=== PATIENT | male | born 1955 | race Caucasian/White ===

== ENCOUNTER 2017-04-22 05:17 | Inpatient (IN) | payer BC, OTHER ==
[2017-04-18 09:34] LABS: HEMATOCRIT 45.6 % (42.0-52.0); HEMOGLOBIN 15.5 gm/dL (14.0-18.0); MCH 32.3 pg (26.0-34.0); MCHC 34.1 g/dL (28.0-37.0); MCV 94.7 fL (80.0-100.0); RBC 4.82 mil/uL (4.50-6.00); RDW 14.5 % (10.5-14.5); WBC 5.5 thou/uL (4.0-11.0)
[2017-04-18 09:37] LABS: URINE BILIRUBIN NEGATIVE (Negative); URINE BLOOD NEGATIVE (Negative); URINE COLOR YELLOW; URINE GLUCOSE-RANDOM* NEGATIVE (Negative); URINE KETONES TRACE (Negative); URINE LEUKOCYTES-REFLEX NEGATIVE (Negative); URINE PROTEIN (DIPSTICK) NEGATIVE (Negative); URINE UROBILINOGEN 0.2 E.U./dl (0.2-1.0)
[2017-04-18 09:50] LABS: ALBUMIN 4.4 g/dL (3.4-5.0); CALCIUM 9.9 mg/dL (8.5-10.1); CREATININE 0.9 mg/dL (0.7-1.3); POTASSIUM 4.4 mmol/L (3.5-5.1)
[2017-04-18 09:51] LABS: INR 2.7; PROTIME 25.5 Seconds (9.3-11.4)
[2017-04-22] VITALS (12 sets, daily range): BP systolic 111–138; BP diastolic 65–89
[~2017-04-22] VITALS: Ht 193 cm; Wt 117.9 kg
--- NOTE | ~2017-04-22 | O ---
[facility] [place] [address] OPERATIVE REPORT Name: BENJAMIN ORTIZ Room #: 150-5 ADM IN M.R.#: [id number] Admission: 04/22/17 Attend Phys: Johann Polk MD Discharge: Date of : 51 Report #: [id number] THIS REPORT FOR: //name// CC: Jonathan Polk DATE OF SERVICE: 04/22/2017 PREOPERATIVE DIAGNOSIS: Left hip osteoarthritis. POSTOPERATIVE DIAGNOSIS: Left hip osteoarthritis. PROCEDURE: Left total hip arthroplasty. SURGEON: Johann Polk MD MUSIC THEORY PROFESSOR: Mahnaz Albert PA-C INDICATION FOR MUSIC THEORY PROFESSOR: Throughout the case extensive retraction and dislocation and reduction of the hip was required. This was afforded to me by my medication assistant. ANESTHESIA: General endotracheal. IMPLANTS: [employer] size 18 Synergy high offset press-fit stem, a size 60 R3 acetabular cup with one acetabular screw and a size 40 -3 Oxinium head. ESTIMATED BLOOD LOSS: 250 mL. COMPLICATIONS: None. SPECIMENS: None. CONDITION UPON LEAVING THE OPERATING ROOM: Stable. INDICATIONS FOR PROCEDURE: The patient is a 61-year-old gentleman with severe left hip osteoarthritis, had failed conservative treatment for this and after discussion with him, he elected for left total hip arthroplasty. DESCRIPTION OF PROCEDURE: Risks, benefits, alternatives, complications were discussed in detail with the patient including but not limited to risk of anesthesia, risk of damage to nerves, arteries, blood vessels, risk for infection, bleeding, risk for continued hip pain and need for reoperation. Informed consent was obtained from the patient. Left hip was appropriately marked in the preoperative holding area. IV Ancef was given for preoperative antibiotics. He was brought to the operating room and placed in supine position [address] [address] OPERATIVE REPORT Name: DIANABENJAMIN Mary Room #: 150-5 [facility] IN M.R.#: [id number] Admission: 04/22/17 Attend Phys: Johann Polk MD Discharge: Date of : 51 Report #: [id number] on operating room table. General endotracheal anesthesia was induced without complication. He was then placed in the right lateral decubitus position with the left hip uppermost. Left hip and lower extremity were prepped and draped in normal sterile fashion. Timeout was performed properly identifying the patient and procedure as well as the instrumentation and implants. All in the operating room were in agreement. Standard posterior approach to the hip was made with 10 blade through the skin. Dissection was taken down to the fascia with Bovie cautery and a fresh #10 blade was used to make a fascial incision. This was taken proximally and distally with curved [place]ada scissor. Charnley retractor was then placed. The trochanteric bursa was taken down with Bovie cautery. Piriformis tendon was identified, tagged and taken down with Bovie. Short external rotators were also taken down with Bovie cautery. Capsulotomy was made and capsule ends were tagged for later repair. Hip was dislocated and there was extensive osteoarthritic change of the femoral head. Femoral neck cut 1 cm proximal to lesser trochanter was made based on preoperative templating and the femoral head was removed. Deep acetabular retractors were placed. Labrum was removed sharply. Pulvinar was removed with Bovie cautery and then the acetabulum was sequentially reamed up to a size 60, at which point there was excellent bleeding cancellous bone. This was trialed with size 59 cup, which was found to have a good fit. A final size 60 R3 acetabular cup was then seated. One acetabular screw was placed for backup fixation. Polyethylene liner for a size 40 head was placed. Attention was turned to the femur. This was reamed and broached up to a size 18, at which point a size 18 broach was stable. This trialed with a high offset neck and a 40+0 head. Hip was reduced, taken through range of motion, found to be stable, found to have somewhat long leg lengths compared to the right lower extremity. It was felt this could be made up with the final implant. Hip was dislocated and a final size 18 high offset Synergy press fit stem was placed. This was trialed with a 40 -3 head. Hip was reduced, taken through range of motion, found to be stable, found to be just slightly long on the left compared to the right, which is not surprising given that he had equal arthritic change on both hips. It was felt this would be acceptable and the hip was dislocated and a final size 40 -3 Oxinium head was placed. Hip was reduced, taken through range of motion, found to be stable, found to have a slightly long leg length on the left compared to the right by about a cm. Wound was thoroughly irrigated with normal saline. Periarticular injection consisting of ropivacaine, morphine, epinephrine and Toradol was placed around the hip joint. A gram of vancomycin was placed deep in the hip joint. Capsule was repaired with 0 FiberWire. The fascia was closed with 0 Vicryl, skin was closed with 2-0 Vicryl, 3-0 Monocryl and a CRISTOFER dressing was applied. The patient tolerated this procedure well and went to the recovery room under the care of anesthesia postoperatively. By: [id number] Johann Polk MD /nt
[~2017-04-22 05:17] MED LIST: CELEBREX 200 M200 M1 PO; COUMADIN 5 MG TA5 M1 PO; ENOXAPARIN120 MG/0.1; LIPITOR 20 MG T20 M1 PO; NORVASC5 MG PO; PRILOSEC 20 MG20 MG PO; PROSCAR 5MG TABL5 M1 PO; VENLAFAXIN37.5 MG/1 PO
[2017-04-22 11:17] LABS: INR 1.1; PROTIME 10.9 Seconds (9.3-11.4)
[2017-04-23 03:35] VITALS: BP 121/68
[2017-04-23 04:56] LABS: HEMATOCRIT 33.9 % (42.0-52.0); HEMOGLOBIN 11.4 gm/dL (14.0-18.0); MCH 32.5 pg (26.0-34.0); MCHC 33.4 g/dL (28.0-37.0); MCV 97.3 fL (80.0-100.0); RBC 3.49 mil/uL (4.50-6.00); RDW 14.9 % (10.5-14.5); WBC 9.8 thou/uL (4.0-11.0)
[2017-04-23 08:01] VITALS: BP 117/73
[2017-04-23] MEDS ORDERED: MS CONTIN15 MG PO (10:58)
[2017-04-23] MEDS ORDERED: PERCOCET PO (10:59)
[2017-04-23] MEDS ORDERED: NEURONTIN 300300 M1 PO (10:59)
[2017-04-23 12:32] VITALS: BP 117/73
[2017-04-24 09:02] VITALS: BP 117/73
== END 2017-04-23 15:00 | disposition home health service (06) | DRG 470 ==
LOC: EDSTATUS 05:17 → TBA 05:20 → PRE 05:24 → 4N 16:18 → ENTRNSPT 04-23 14:41 → EDTRNSPTSTS 04-23 14:44 → 4N 04-23 15:00
PROVIDERS: Orthopaedic Surgery
PROC: 0SRB0JZ Replacement of Left Hip Joint with Synthetic Substitute, Open Approach (ICD-10-PCS; principal; 2017-04-22)
DX: M16.12 Unilateral primary osteoarthritis, left hip (principal)
CPT/HCPCS: 10790; 50010; 50101; 50382; 50414; 51771; 53000; 53078; 53368; 54118; 56524; 56527; 56528; 56530; 57095; 62110; 62900; 70005

== ENCOUNTER 2017-05-06 12:54 | Inpatient (IN) | payer BC, OTHER ==
[~2017-05-06] VITALS: Ht 193 cm; Wt 123.8 kg
--- NOTE | ~2017-05-06 | O ---
[facility] [place] [place] [address] OPERATIVE REPORT Name: DIANABENJAMIN A Room #: 354-P [facility] IN M.R.#: [id number] Admission: 05/06/17 Attend Phys: Johann Polk MD Discharge: 05/07/17 Date of : 51 Report #: [id number] THIS REPORT FOR: //name// CC: Jonathan Polk DATE OF SERVICE: 05/06/2017 PREOPERATIVE DIAGNOSIS: Left hip postoperative hematoma. POSTOPERATIVE DIAGNOSIS: Left hip postoperative hematoma. PROCEDURE: 1. Evacuation of left hip hematoma. 2. Irrigation and debridement of left hip. SURGEON: Johann Polk MD CLOTH CARRIER: RIA Rodney ANESTHESIA: LMA. ESTIMATED BLOOD LOSS: 50 mL FINDINGS: A superficial hematoma above the fascia from postoperative total hip replacement. SPECIMENS: Cultures were taken x 2. CONDITION UPON LEAVING THE OPERATING ROOM: Stable. INDICATIONS FOR PROCEDURE: The patient is a 61-year-old gentleman who is 2 weeks out from a left total hip arthroplasty. 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 His dressing was taken down and he had a large amount of serosanguineous drainage from his wound and it was decided that he likely had a postoperative hematoma and after discussion with him, he elected for evacuation of the hematoma with possible placement of drain. DESCRIPTION OF PROCEDURE: Risks, benefits, alternatives, complications were discussed in detail with the patient including, but not limited to risk of anesthesia; risk of damage to nerves, arteries, blood vessels; risk for infection, bleeding; risk for continued hip pain and need for reoperation. Informed consent was obtained from the patient. Left hip was appropriately marked in the preoperative holding area. IV Ancef was given for preoperative antibiotics. He was brought to the operating room and placed in supine position [address] [address] OPERATIVE REPORT Name: DIANABENJAMIN A Room #: 354-P [facility] IN ..#: [id number] Admission: 05/06/17 Attend Phys: Johann Polk MD Discharge: 05/07/17 Date of : 51 Report #: [id number] on operating room table. LMA anesthesia was induced without complication. The left hip was bumped. Left hip and lower extremity were prepped and draped in normal sterile fashion. Timeout was performed properly identifying the patient and procedure as well as the instrumentation; all in the operating room were in agreement. The previous incision was then opened with a 10 blade and upon opening the skin, a large resolving hematoma was evacuated. The fascial closure was explored and found to be intact. The hematoma space was then thoroughly irrigated with normal saline and hemostasis was obtained with Bovie cautery. A deep drain was placed. The adipose layer was closed with 0 Vicryl, skin was closed with 2-0 Vicryl, 3-0 nylon and a dressing of CRISTOFER was applied. The patient tolerated this procedure well and went to the recovery room under care of Anesthesia postoperatively. <ELECTRONICALLY SIGNED> By: Johann Polk MD 05/09/17 [id number] Johann Polk MD /nt
[~2017-05-06 12:54] MED LIST changes: +MS CONTIN15 MG PO; +NEURONTIN 300300 M1 PO; +PERCOCET PO
[2017-05-06 13:30] VITALS: BP 148/82
[2017-05-06 16:00] LABS: HEMATOCRIT 33.5 % (42.0-52.0); HEMOGLOBIN 11.2 gm/dL (14.0-18.0); MCH 32.2 pg (26.0-34.0); MCHC 33.3 g/dL (28.0-37.0); MCV 96.7 fL (80.0-100.0); RBC 3.47 mil/uL (4.50-6.00); RDW 13.9 % (10.5-14.5); WBC 6.3 thou/uL (4.0-11.0)
[2017-05-06 20:20] VITALS: BP 114/76
[2017-05-07] VITALS: BP 102/61
[2017-05-07 03:58] VITALS: BP 122/74
[2017-05-07 06:03] LABS: HEMATOCRIT 30.1 % (42.0-52.0); HEMOGLOBIN 10.3 gm/dL (14.0-18.0); MCHC 34.3 g/dL (28.0-37.0); MCV 96.4 fL (80.0-100.0); RBC 3.12 mil/uL (4.50-6.00); RDW 14.2 % (10.5-14.5); WBC 4.7 thou/uL (4.0-11.0)
[2017-05-07 08:05] VITALS: BP 113/74
[2017-05-07 12:20] VITALS: BP 120/64
[2017-05-07 13:35] VITALS: BP 120/64
== END 2017-05-07 15:18 | disposition home or self-care (01) | DRG 903 ==
LOC: OR 12:54 → TBA 13:00 → 3W 18:15 → OR 18:54 → 3W 18:54 → ENTRNSPT 05-07 14:05 → EDTRNSPTSTS 05-07 14:08 → 3W 05-07 15:18
PROVIDERS: Orthopaedic Surgery; Student in an Organized Health Care Education/Training Program
PROC: 0JBM0ZZ Excision of Left Upper Leg Subcutaneous Tissue and Fascia, Open Approach (ICD-10-PCS; principal; 2017-05-06)
PROC: 0J9M00Z Drainage of Left Upper Leg Subcutaneous Tissue and Fascia with Drainage Device, Open Approach (ICD-10-PCS; principal; 2017-05-06)
DX: L76.22 Postprocedural hemorrhage of skin and subcutaneous tissue following other procedure (principal); Y83.8 Other surgical procedures as the cause of abnormal reaction of the patient, or of later complication, without mention of misadventure at the time of the procedure; Z87.891 Personal history of nicotine dependence
CPT/HCPCS: 10779; 50010; 50101; 50382; 50414; 51412; 51771; 53078; 54118; 56527; 56528; 56529; 57095; 59999; 62110; 62900; 70005